=== PATIENT | female | born 1980 | race African-American/Black ===

== ENCOUNTER 2017-01-05 21:14 | Emergency (ER) | payer MEDICAID ==
[~2017-01-05] VITALS: Ht 157.5 cm; Wt 85.7 kg
[2017-01-05 21:23] VITALS: BP_SYST 112
[2017-01-06 00:16] VITALS: BP_SYST 112
== END 2017-01-06 00:16 | disposition home or self-care (01) ==
LOC: SED 21:14
DX: M79.662 Pain in left lower leg (principal)
CPT/HCPCS: 93971; 99284

== ENCOUNTER 2018-05-06 18:12 | Emergency (ER) | payer MEDICAID ==
[~2018-05-06] VITALS: Ht 157.5 cm; Wt 81.6 kg
[2018-05-06] MEDS ORDERED: NACL 0.9% 1,000 ML IV ONE (19:04)
[2018-05-06 19:15] VITALS: BP_SYST 129
--- NOTE | 2018-05-06 19:15 | NUR ---
Patient to ER bed 4 to gown for evaluation. Side rails up
--- NOTE | 2018-05-06 19:20 | NUR ---
Pt is AAO x 4 and ambulatory c/o dizziness and "heavy head" for the past few days. Pt states she was diagnosed with Vertigo years ago but this time it feels a little different. Pt has hard time walking and she feels "off balance." Pt denies vomiting but feels nauseous. Per patient she felt "chills but is unsure if she had fever." No other injuries/complaints per patient or noted.
--- NOTE | 2018-05-06 19:21 | NUR ---
xray at bedside, pt tolerated well.
--- NOTE | 2018-05-06 19:50 | NUR ---
ER Dr. Green at bedside examining patient.
[2018-05-06 19:55] LABS: BASOPHILS # (AUTO) 0.1 K/uL (0.0-0.2); BASOPHILS % (AUTO) 1.6 % (0.0-2.0); EOSINOPHILS # (AUTO) 0.1 K/uL (0.0-0.4); EOSINOPHILS % (AUTO) 1.4 % (0.0-4.0); HEMATOCRIT 39.1 % (36-48); HEMOGLOBIN 13.2 g/dL (12.0-16.0); LYMPHOCYTES # (AUTO) 2.4 K/uL (1.0-5.5); LYMPHOCYTES % (AUTO) 29.9 % (20.5-51.5); MEAN CORPUSCULAR HEMOGLOBIN 29 pg (27-31); MEAN CORPUSCULAR HGB CONC 34 % (32-36); MEAN CORPUSCULAR VOLUME 85 fL (79.0-98.0); MONOCYTES # (AUTO) 0.4 K/uL (0.0-1.0); MONOCYTES % (AUTO) 5.7 % (1.7-9.3); NEUTROPHILS # (AUTO) 4.9 K/uL (1.8-7.7); NEUTROPHILS % (AUTO) 61.4 % (40.0-70.0); PLATELET COUNT (AUTO) 337 K/uL (130-430); RED CELL DISTRIBUTION WIDTH 12.2 % (9.0-15.0); WHITE BLOOD COUNT (AUTO) 7.9 K/uL (4.8-10.8)
[2018-05-06 20:00] LABS: CALCIUM 8.8 mg/dL (8.4-11.0); CREATININE 0.79 mg/dL (0.55-1.30); POTASSIUM 3.8 mmol/L (3.5-5.1)
[2018-05-06 20:06] LABS: ALBUMIN 3.4 g/dL (3.4-4.8); TOTAL BILIRUBIN 0.2 mg/dL (0.0-1.0)
--- NOTE | 2018-05-06 20:18 | NUR ---
Orthostatics was taken, pt tolerated well. Notified Dr. Green of vitals.
[2018-05-06 20:21] LABS: INR 1.1 (0.8-1.2); PROTHROMBIN TIME 10.8 SECS (9.5-12.5)
[2018-05-06 20:25] LABS: BILIRUBIN,URINE NEGATIVE (NEGATIVE); BLOOD, URINE NEGATIVE (NEGATIVE); CLARITY/URINE CLEAR (CLEAR); COLOR,URINE YELLOW (YELLOW); GLUCOSE,URINE NEGATIVE (NEGATIVE); KETONES,URINE NEGATIVE (NEGATIVE); LEUKOCYTE ESTERASE ,URINE 2+ (NEGATIVE); NITRITE, URINE NEGATIVE (NEGATIVE); PROTEIN URINE NEGATIVE (NEGATIVE)
[2018-05-06 20:43] LABS: BACTERIA,URINE MODERATE /HPF (None Seen); MUCUS,URINE None Seen /LPF (None Seen); WBC,URINE 20-50 /HPF (0-3); YEAST,URINE None Seen /HPF (None Seen)
[2018-05-06] MEDS ORDERED: SULFAMETHOXAZOLE/TRIMETHOPR DS 1 TABLET PO ONE (22:00)
--- NOTE | 2018-05-06 22:03 | NUR ---
Pt states she recalls being allergic to bactrim. Pt refused medication. Dr. Green notified. Orders to be received.
--- NOTE | 2018-05-06 22:14 | NUR ---
Macrobid PO administered. Pt tolerated well. No adverse reactions noted.
[2018-05-06] MEDS ORDERED: NITROFURANTOIN MONOHYD/M-CRYST 100 MG CAPSULE PO ONE (22:15)
--- NOTE | 2018-05-06 22:24 | NUR ---
Patient given written and verbal discharge instructions and verbalizes understanding. ER MD Green discussed with patient the results and treatment provided. Patient in stable condition. ID arm band removed. IV catheter removed intact and dressing applied, no active bleeding. Rx of Macrobid, Antivert given. Patient educated on pain management and to follow up with PMD. Pain Scale 0. Opportunity for questions provided and answered. Medication side effect fact sheet provided.
[2018-05-06 22:32] VITALS: BP_SYST 111
== END 2018-05-06 22:32 | disposition home or self-care (01) ==
LOC: SED 18:12
DX: R42 Dizziness and giddiness (principal); N39.0 Urinary tract infection, site not specified; Z88.2 Allergy status to sulfonamides; Z88.8 Allergy status to other drugs, medicaments and biological substances
CPT/HCPCS: 36415; 71045; 80053; 81000; 81003; 82150; 82550; 83690; 85025; 85610; 85730; 87086; 93005; 96360; 99284; J7030

== ENCOUNTER 2020-04-14 14:33 | Emergency (ER) | payer MEDICAID ==
[~2020-04-14] VITALS: Ht 157.5 cm; Wt 88.5 kg
[2020-04-14 14:50] VITALS: BP_SYST 118
--- NOTE | 2020-04-14 14:55 | NUR ---
forrest and asked the pt to wait in the waiting area
--- NOTE | 2020-04-14 15:32 | NUR ---
Felicia rodriguez in ED - 04/14/20 at 1533 by SDEDCJM LISA Arizmendi at bedside examining patient.
--- NOTE | 2020-04-14 15:32 | NUR ---
Felicia rodriguez in ED - 04/14/20 at 1556 by SDEDCJM LISA Arizmendi in triage room examining patient.
--- NOTE | 2020-04-14 15:55 | NUR ---
ER in triage room examining patient.
--- NOTE | 2020-04-14 16:00 | NUR ---
6Patient to ER bed 7 to gown for evaluation. Side rails up. Report given to BALBIR TAYLOR.
[2020-04-14] MEDS ORDERED: LIDOCAINE 1% 10 MG/ML, 20 ML MDV INJ ONE (16:15)
[2020-04-14] MEDS ORDERED: LIDOCAINE 1%, 20 ML MDV 20 ML ONE (16:36)
[2020-04-14] MEDS ORDERED: DIPH-TET-PERTUS Vaccine 0.5 ML VIAL (ADACEL) I.M. ONE (16:45)
[2020-04-14 16:54] VITALS: BP_SYST 118
--- NOTE | 2020-04-14 16:55 | NUR ---
Patient given written and verbal discharge instructions and verbalizes understanding. ER MD discussed with patient the results and treatment provided. Patient in stable condition. ID arm band removed. Rx of Doxycyline given. Patient educated on pain management and to follow up with PMD. Pain Scale 0/10. Opportunity for questions provided and answered. Medication side effect fact sheet provided.
== END 2020-04-14 16:54 | disposition home or self-care (01) ==
LOC: SED 14:33
DX: L02.512 Cutaneous abscess of left hand (principal); Z88.2 Allergy status to sulfonamides; Z86.14 Personal history of Methicillin resistant Staphylococcus aureus infection
CPT/HCPCS: 10060; 99283; J2001

== ENCOUNTER 2020-10-25 20:56 | Emergency (ER) | payer MEDICAID ==
[~2020-10-25] VITALS: Ht 157.5 cm; Wt 88.0 kg
[2020-10-25 20:56] VITALS: BP_SYST 151
== END 2020-10-25 23:30 | disposition left against medical advice (07) ==
LOC: SED 20:56
DX: M25.562 Pain in left knee (principal); Z53.21 Procedure and treatment not carried out due to patient leaving prior to being seen by health care provider

== ENCOUNTER 2021-03-21 13:06 | Emergency (ER) | payer MEDICAID ==
[~2021-03-21] VITALS: Ht 157.5 cm; Wt 90.7 kg
[2021-03-21 13:09] VITALS: BP_SYST 147
[2021-03-21] MEDS ORDERED: ALPR0.5T PO (13:23)
[2021-03-21] MEDS ORDERED: ALPRAZolam 0.25 MG TABLET PO ONE (13:30)
== END 2021-03-21 14:05 | disposition home or self-care (01) ==
LOC: SED 13:06
DX: F41.0 Panic disorder [episodic paroxysmal anxiety] (principal); Z88.8 Allergy status to other drugs, medicaments and biological substances; Z79.899 Other long term (current) drug therapy
CPT/HCPCS: 99283

== ENCOUNTER 2021-04-10 19:29 | Emergency (ER) | payer MEDICAID ==
[~2021-04-10] VITALS: Ht 157.5 cm; Wt 86.2 kg
[~2021-04-10 19:29] MED LIST: ALPR0.5T PO
[2021-04-10 19:55] VITALS: BP_SYST 137
[2021-04-10] MEDS ORDERED: ACYC-133 PO (20:10)
[2021-04-10] MEDS ORDERED: IBUP-1971 PO (20:10)
[2021-04-10] MEDS ORDERED: ACYCLOVIR 400 MG TABLET ONE (20:24)
[2021-04-10] MEDS ORDERED: IBUPROFEN 800 MG TABLET ONE (20:24)
[2021-04-10] MEDS ORDERED: ACYCLOVIR 400 MG TABLET PO ONE (20:30)
[2021-04-10] MEDS ORDERED: IBUPROFEN 800 MG TABLET PO ONE (20:30)
[2021-04-10 20:37] VITALS: BP_SYST 133
== END 2021-04-10 20:38 | disposition home or self-care (01) ==
LOC: SED 19:29
DX: L03.012 Cellulitis of left finger (principal); Z88.8 Allergy status to other drugs, medicaments and biological substances; Z79.899 Other long term (current) drug therapy
CPT/HCPCS: 99283

== ENCOUNTER 2021-08-24 18:10 | Emergency (ER) | payer MEDICAID ==
[~2021-08-24] VITALS: Ht 157.5 cm; Wt 90.7 kg
[2021-08-24 18:10] VITALS: BP_SYST 144
[~2021-08-24 18:10] MED LIST changes: +ACYC-133 PO; +IBUP-1971 PO
--- NOTE | 2021-08-24 18:10 | NUR ---
Patient triaged and placed in waiting room. VSS and patient appears in no acute distress at this time. Accompanied by self, awaiting available bed, and MD notified of need for MSE.
--- NOTE | 2021-08-24 20:00 | NUR ---
Pt placed to ER bed 06, to gown. Pt c/o lower abdominal pain since yesterday. Denies N/V/D, no c/o dysuria.
[2021-08-24 20:01] LABS: BILIRUBIN,URINE NEGATIVE (NEGATIVE); CLARITY/URINE CLEAR (CLEAR); COLOR,URINE YELLOW (YELLOW); GLUCOSE,URINE NEGATIVE (NEGATIVE); KETONES,URINE NEGATIVE (NEGATIVE); LEUKOCYTE ESTERASE ,URINE TRACE (NEGATIVE); NITRITE, URINE NEGATIVE (NEGATIVE); PH,URINE 7.5 (5.0-8.0); PROTEIN URINE NEGATIVE (NEGATIVE)
[2021-08-24 20:02] LABS: BLOOD, URINE TRACE (NEGATIVE)
[2021-08-24 20:12] LABS: BACTERIA,URINE FEW /HPF (None Seen); RBC,URINE 0-3 /HPF (0-3)
[2021-08-24 20:24] LABS: BASOPHILS # (AUTO) 0.1 K/uL (0.0-0.2); BASOPHILS % (AUTO) 1.1 % (0.0-2.0); EOSINOPHILS # (AUTO) 0.1 K/uL (0.0-0.4); EOSINOPHILS % (AUTO) 1.3 % (0.0-4.0); HEMATOCRIT 39.7 % (36-48); HEMOGLOBIN 12.9 g/dL (12.0-16.0); LYMPHOCYTES # (AUTO) 1.5 K/uL (1.0-5.5); LYMPHOCYTES % (AUTO) 15.3 % (20.5-51.5); MEAN CORPUSCULAR HEMOGLOBIN 27 pg (27-31); MEAN CORPUSCULAR HGB CONC 33 % (32-36); MEAN CORPUSCULAR VOLUME 82 fL (79.0-98.0); MONOCYTES # (AUTO) 0.4 K/uL (0.0-1.0); MONOCYTES % (AUTO) 4.2 % (1.7-9.3); NEUTROPHILS # (AUTO) 7.4 K/uL (1.8-7.7); NEUTROPHILS % (AUTO) 78.1 % (40.0-70.0); PLATELET COUNT (AUTO) 357 K/uL (130-430); RED BLOOD CELL COUNT(AUTO) 4.88 MIL/uL (4.2-6.2); RED CELL DISTRIBUTION WIDTH 14.1 % (9.0-15.0); WHITE BLOOD COUNT (AUTO) 9.5 K/uL (4.8-10.8)
--- NOTE | 2021-08-24 20:25 | NUR ---
Dr. Rodriguez at bedside.
[2021-08-24] MEDS ORDERED: ONDANSETRON HCL 4 MG/2 ML VIAL IVP ONE (20:30)
[2021-08-24] MEDS ORDERED: MORPHINE 4 MG INJ. 4 MG/ML VIAL IVP ONE (20:30)
[2021-08-24] MEDS ORDERED: NACL 0.9% 1,000 ML IV ONE (20:30)
[2021-08-24 20:39] LABS: CALCIUM 9.1 mg/dL (8.4-11.0); CREATININE 0.68 mg/dL (0.55-1.30); POTASSIUM 4.1 mmol/L (3.5-5.1)
[2021-08-24 20:45] LABS: ALBUMIN 3.3 g/dL (3.4-4.8); TOTAL BILIRUBIN 0.2 mg/dL (0.0-1.0)
--- NOTE | 2021-08-24 21:30 | NUR ---
Unsuccessful PIV attempts x 2. Pt refuses any further PIV access attempts. notified.
--- NOTE | 2021-08-24 22:13 | NUR ---
PATIENT REFUSING IM INJECTION OF MORPHINE. MEDICATION WASTED AT [facility] WITNESSED BY Yenni AZUL RN. NOTIFIED. NORCO ORDERED PO.
[2021-08-24] MEDS ORDERED: MORPHINE 4 MG INJ. 4 MG/ML VIAL IM ONE (22:15)
[2021-08-24] MEDS ORDERED: ONDANSETRON 4 MG ODT TAB PO ONE (22:15)
[2021-08-24] MEDS ORDERED: HYDROcodone/ACETAMIN 10-325 MG TAB PO ONE (22:15)
[2021-08-24] MEDS ORDERED: CEPH-548 PO (22:41)
[2021-08-24] MEDS ORDERED: PHEN-727 PO (22:41)
[2021-08-24] MEDS ORDERED: IBUP-1971 PO (22:43)
[2021-08-24] MEDS ORDERED: cephALEXin 500 MG CAPSULE PO ONE (22:45)
[2021-08-24] MEDS ORDERED: IBUPROFEN 800 MG TABLET PO ONE (22:45)
[2021-08-24 23:15] VITALS: BP_SYST 136
--- NOTE | 2021-08-24 23:15 | NUR ---
Patient given written and verbal discharge instructions and verbalizes understanding. ER MD discussed with patient the results and treatment provided. Patient in stable condition. ID arm band removed. Rx of Cephalexin, Ibuprofen, and Pyridium given. Patient educated on pain management and to follow up with PMD. Pain Scale 6/10. Pt received Motrin 800mg PO prior to D/C and Rx for pain medication. Opportunity for questions provided and answered. Medication side effect fact sheet provided.
== END 2021-08-24 23:15 | disposition home or self-care (01) ==
LOC: SED 18:10
DX: N39.0 Urinary tract infection, site not specified (principal); Z88.2 Allergy status to sulfonamides; Z79.899 Other long term (current) drug therapy
CPT/HCPCS: 36415; 74176; 76376; 80053; 81000; 81025; 83690; 84702; 85025; 87086; 99284; J2270; J2405; Q0162

== ENCOUNTER 2021-11-22 20:27 | Emergency (ER) | payer MEDICAID ==
[~2021-11-22] VITALS: Ht 157.5 cm; Wt 90.7 kg
[~2021-11-22 20:27] MED LIST changes: +CEPH-548 PO; +PHEN-727 PO
[2021-11-22 20:59] VITALS: BP_SYST 135
[2021-11-22 21:59] LABS: BASOPHILS # (AUTO) 0.1 K/uL (0.0-0.2); BASOPHILS % (AUTO) 1.2 % (0.0-2.0); EOSINOPHILS # (AUTO) 0.2 K/uL (0.0-0.4); EOSINOPHILS % (AUTO) 1.9 % (0.0-4.0); HEMATOCRIT 35.5 % (36-48); HEMOGLOBIN 11.8 g/dL (12.0-16.0); LYMPHOCYTES # (AUTO) 2.2 K/uL (1.0-5.5); LYMPHOCYTES % (AUTO) 26.2 % (20.5-51.5); MEAN CORPUSCULAR HEMOGLOBIN 27 pg (27-31); MEAN CORPUSCULAR HGB CONC 33 % (32-36); MEAN CORPUSCULAR VOLUME 81 fL (79.0-98.0); MONOCYTES # (AUTO) 0.5 K/uL (0.0-1.0); MONOCYTES % (AUTO) 6.7 % (1.7-9.3); NEUTROPHILS # (AUTO) 5.3 K/uL (1.8-7.7); PLATELET COUNT (AUTO) 370 K/uL (130-430); RED CELL DISTRIBUTION WIDTH 14.1 % (9.0-15.0); WHITE BLOOD COUNT (AUTO) 8.2 K/uL (4.8-10.8)
[2021-11-22] MEDS ORDERED: ONDANSETRON HCL 4 MG/2 ML VIAL IVP ONE (22:45)
[2021-11-22] MEDS ORDERED: NACL 0.9% 1,000 ML IV ONE (22:45)
[2021-11-22] MEDS ORDERED: MORPHINE 4 MG INJ. 4 MG/ML VIAL IVP ONE (22:45)
--- NOTE | 2021-11-22 22:47 | NUR ---
ER at bedside examining patient.
--- NOTE | 2021-11-22 23:47 | NUR ---
Pt C/O lower abdominal pain and vaginal bleeding Pt states she is AOX4 VSS Verbally responsive Able to make needs known Will continue to monitor
[2021-11-23 00:54] LABS: BILIRUBIN,URINE NEGATIVE (NEGATIVE); BLOOD, URINE 3+ (NEGATIVE); CLARITY/URINE TURBID (CLEAR); COLOR,URINE RED (YELLOW); GLUCOSE,URINE NEGATIVE (NEGATIVE); KETONES,URINE 1+ (NEGATIVE); LEUKOCYTE ESTERASE ,URINE 2+ (NEGATIVE); NITRITE, URINE POSITIVE (NEGATIVE); PROTEIN URINE 2+ (NEGATIVE)
[2021-11-23] MEDS ORDERED: cefTRIAXone 1 GM VIAL ONE (01:09)
[2021-11-23 01:10] LABS: BACTERIA,URINE FEW /HPF (None Seen); RBC,URINE >100 /HPF (0-3); WBC,URINE 20-50 /HPF (0-3)
[2021-11-23] MEDS ORDERED: cefTRIAXone 1 GM IVPB PREMIX 50 ML IV ONE (01:15)
[2021-11-23] MEDS ORDERED: NITR-85 PO (01:24)
[2021-11-23 01:30] VITALS: BP_SYST 111
--- NOTE | 2021-11-23 01:33 | NUR ---
Patient given written and verbal discharge instructions and verbalizes understanding. ER MD discussed with patient the results and treatment provided. Patient in stable condition. ID arm band removed. IV catheter removed intact and dressing applied, no active bleeding. Rx of given. Patient educated on pain management and to follow up with PMD. Opportunity for questions provided and answered. Medication side effect fact sheet provided.
== END 2021-11-23 01:32 | disposition home or self-care (01) ==
LOC: SED 20:27
DX: O20.9 Hemorrhage in early pregnancy, unspecified (principal); O23.41 Unspecified infection of urinary tract in pregnancy, first trimester; N93.9 Abnormal uterine and vaginal bleeding, unspecified; N39.0 Urinary tract infection, site not specified; Z3A.10 10 weeks gestation of pregnancy; Z88.2 Allergy status to sulfonamides; Z88.8 Allergy status to other drugs, medicaments and biological substances
CPT/HCPCS: 36415; 76856; 81000; 84702; 85025; 86901; 87040; 87086; 96361; 96365; 96375; 99284; J0696; J2270; J2405; J7030

== ENCOUNTER 2022-12-19 19:11 | Emergency (ER) | payer MEDICAID ==
[~2022-12-19] VITALS: Ht 157.5 cm; Wt 90.7 kg
[~2022-12-19 19:11] MED LIST changes: +NITR-85 PO
[2022-12-19 19:47] VITALS: BP_SYST 153; PULSE 87; RESP 17; TEMP 98.8; O2SAT 99
--- NOTE | 2022-12-19 19:52 | NUR ---
Patient triaged and placed in waiting room. VS checked and patient appears in no acute distress at this time. Accompanied by family , awaiting available bed, and MD notified of need for MSE.
--- NOTE | 2022-12-19 21:40 | NUR ---
ER Dr. HIGGINS at bedside examining patient.
[2022-12-19] MEDS ORDERED: IBUP-1971 PO (22:16)
[2022-12-19] MEDS ORDERED: PRED20TA PO (22:16)
[2022-12-19 22:40] VITALS: BP_SYST 150; PULSE 82; RESP 17; O2SAT 99
--- NOTE | 2022-12-19 22:40 | NUR ---
Patient given written and verbal discharge instructions and verbalizes understanding. ER DR HIGGINS discussed with patient the results and treatment provided. Patient in stable condition. ID arm band removed. Rx of PRENISONE AND MOTRIN given. Patient educated on pain management and to follow up with PMD. Pain Scale 2/10. Opportunity for questions provided and answered. Medication side effect fact sheet provided.
== END 2022-12-19 21:40 | disposition home or self-care (01) ==
LOC: SED 19:11
DX: R06.02 Shortness of breath (principal); R05.9 Cough, unspecified; R42 Dizziness and giddiness; R51.9 Headache, unspecified; Z88.2 Allergy status to sulfonamides; Z79.899 Other long term (current) drug therapy; Z20.822 Contact with and (suspected) exposure to COVID-19
CPT/HCPCS: 36415; 99283